=== PATIENT | female | born 1955 | race Caucasian/White ===

== ENCOUNTER 2016-06-14 15:58 | Emergency (ER) | payer BC, OTHER ==
[~2016-06-14] VITALS: Ht 162.6 cm; Wt 63.6 kg
[2016-06-14 16:01] VITALS: BP 140/67; PULSE 87; RESP 15; TEMP 98; O2SAT 99
--- NOTE | 2016-06-14 16:21 | PD ---
HPI Chief Complaint: Injury Time Seen by Provider: 16:12 Travel History International Travel<30 days: No Contact w/Intl Traveler<30days: No Traveled to known affect area: No History of Present Illness HPI 60-year-old female came to the emergency room with history of right leg sprain. Patient has history of injury to her right knee in the past. She had hardware there and hardware was removed. Today she went to stand up from a sitting position and suddenly heard a pop in the knee. Since then she's been in excruciating pain. She is unable to move that leg at the knee joint or bear weight. This happened at around 1 PM. She is otherwise comfortable if she is not moving her leg. Patient did not fall or hit her head. Vital signs otherwise stable. [facility] Past Medical History Narrative Medical List of her past medical history, social and family history is reviewed from the nursing note. Medical History: Denies Significant Hx Influenza Vaccination: Yes Social History Alcohol Use: Yes Tobacco Use: No Substance Use: No Allergies-Medications (Allergen,Severity, Reaction): Coded Allergies: No Known Allergies (Verified , 12/26/04) Comments No known drug allergies. Reported Meds & Prescriptions Reported Meds & Active Scripts Active Reported Nexium (Esomeprazole) Unknown Strength Pkt Unknown Dose [Primpro] Unknown Strength Unknown Dose Neurontin (Gabapentin) Unknown Strength Cap Unknown Dose PO BID Motrin Ib (Ibuprofen) Unknown Strength Tab Unknown Dose PO Q4H PRN Flexeril (Cyclobenzaprine HCl) Unknown Strength Tab Unknown Dose PO TID Narrative Medication List of her home medications reviewed from the nursing note. Review of Systems Except as stated in HPI: all other systems reviewed are Neg Physical Exam Narrative GENERAL: Awake, alert, no obvious distress SKIN: Warm and dry. HEAD: Atraumatic. Normocephalic. EYES: Pupils equal and round. No scleral icterus. No injection or drainage. ENT: No nasal bleeding or discharge. Mucous membranes pink and moist. NECK: Trachea midline. No JVD. CARDIOVASCULAR: Regular rate and rhythm. No murmur appreciated. RESPIRATORY: No accessory muscle use. Clear to auscultation. Breath sounds equal bilaterally. GASTROINTESTINAL: Abdomen soft, non-tender, nondistended. Hepatic and splenic margins not palpable. MUSCULOSKELETAL: No obvious deformities. No clubbing. No cyanosis. No edema. Right knee slightly swollen and red. Decreased range of motion due to the pain NEUROLOGICAL: Awake and alert. No obvious cranial nerve deficits. Motor grossly within normal limits. Normal speech. PSYCHIATRIC: Appropriate mood and affect; insight and judgment normal. Data Data Last Documented VS Orders Knee, Complete (4vws) (06/14/16 ) Morphine Inj (Morphine Inj) (06/14/16 16:45) Ondansetron Odt (Zofran Odt) (06/14/16 16:45) Sodium Chloride 0.9% Flush (Ns Flush) (06/14/16 17:15) Sodium Chlorid 0.9% 500 Ml Inj (Ns 500 M (06/14/16 17:15) Chest, Single Ap (06/14/16 ) Ct Knee W/O Contrast (06/14/16 ) ^ Knee Immobilizer (06/14/16 18:40) [employer] Request For Service (06/14/16 18:49) Immobilizer Knee 20 Inch (06/14/16 ) [facility] Medical Decision Making Medical Screen Exam Complete: Yes Emergency Medical Condition: Yes Medical Record Reviewed: Yes Differential Diagnosis Knee fracture, dislocation, sprain, joint effusion Narrative Course 4:51 PM patient has been given pain medication. Awaiting for the x-ray to be done and resulted. 6:06 PM x-ray of her knee showed a possible broken osteophyte. I've ordered a CT scan since patient is quite symptomatic. Awaiting for the CT scan to be done and resulted. 6:41 PM I discussed the case with Dr. Harrison who is on-call for orthopedics. Relayed to him the x-ray and the CAT scan report. As per him the mechanism did not fit any ligamental tear. He was okay in discharging the patient home with a immobilizer. He recommended that after couple days she should do gentle knee exercises along with ibuprofen and ice pack. He will follow up with the patient as an outpatient. I explained this to the patient and she is comfortable with the plan. She'll be discharged home. Procedures EKG Prior to Arrival: No Diagnosis Primary Impression: Strain of knee and leg, right Qualified Code: S86.911A - Strain of knee and leg, right, initial encounter Additional Impression: Arthritis of knee, right Referrals: Yinka Frye MD 1 week Additional Instructions: Please follow-up with the orthopedist's name and number been provided to you. Use the immobilizer for next 2 days. After which intermittently take the knee immobilizer off and do gentle the exercises. Take Motrin for pain relief and inflammation. Apply ice pack alternating with warm compresses. Keep the leg in an elevated position above the heart level to reduce the swelling. Med/Other Pt SpecificInfo: No Change to Meds Disposition: 01 DISCHARGE HOME Condition: Jim Baez MD Jun 14, 2016 16:21 Disposition: 01 DISCHARGE HOME Condition: Jim Baez MD Jun 14, 2016 16:21
[2016-06-14] MEDS ORDERED: CYCL5TAB PO (16:22)
[2016-06-14] MEDS ORDERED: MOTR200T4 PO (16:23)
[2016-06-14] MEDS ORDERED: PRIMPRO (16:23)
[2016-06-14] MEDS ORDERED: ESOM2.5G (16:23)
[2016-06-14] MEDS ORDERED: NEUR100C PO (16:23)
[2016-06-14] MEDS ORDERED: ONDANSETRON ODT 4 MG TAB PO ONE (16:45)
[2016-06-14] MEDS ORDERED: MORPHINE SULFATE 4 MG/ML INJ IM ONE (16:45)
[2016-06-14] MEDS ORDERED: SODIUM CHLORID 0.9% 500 ML INJ 500 ML IV ONE (17:15)
[2016-06-14] MEDS ORDERED: SODIUM CHLORIDE 0.9% FLUSH 5 ML FLUSH IVF PRN (17:15)
--- NOTE | 2016-06-14 17:17 | RADRPT ---
EXAM DATE/TIME: 06/14/2016 16:55 [facility] COMPARISON: No previous studies available for comparison. INDICATIONS : Right knee pain, twisted knee today. MEDICAL HISTORY : None. SURGICAL HISTORY : ACL repair. ENCOUNTER: Initial ACUITY: 1 day PAIN SCORE: 8/10 LOCATION: Right knee. FINDINGS: Bone density is normal. The osseous structures are normal alignment. On the oblique view, there is an ossific fragment seen anterior to the medial proximal tibia; this is not seen on the other views. The patella appears grossly intact. Suprapatellar soft tissues normal thickness. The medial latera l joint space are symmetric in width. There is deformity of the proximal diametaphysis of the fibula characteristic of an old fracture. CONCLUSION: Irregular ossific density anterior to the medial proximal tibial metaphysis seen only on one of the 4 views. This could represent heterotopic ossification related to prior knee surgery. Recommend kenny elation with clinical exam for point tenderness. Healed fracture proximal fibula. Michoacano Castellanos MD on June 14, 2016 at 17:14 Board Certified Radiologist. This report was verified electronically.
--- NOTE | 2016-06-14 17:35 | RADRPT ---
EXAM DATE/TIME: 06/14/2016 17:26 [facility] COMPARISON: No previous studies available for comparison. INDICATIONS : Chest pain. MEDICAL HISTORY : None. SURGICAL HISTORY : None. ENCOUNTER: Initial ACUITY: 1 day PAIN SCORE: 0/10 LOCATION: Bilateral chest FINDINGS: A single view of the chest demonstrates the lungs to be symmetrically aerated without evidence of mas s, infiltrate or effusion. The cardiomediastinal contours are unremarkable. Osseous structures are intact. CONCLUSION: The lungs are clear. Michoacano Castellanos MD on June 14, 2016 at 17:34 Board Certified Radiologist. This report was verified electronically.
--- NOTE | 2016-06-14 18:07 | RADRPT ---
EXAM DATE/TIME: 06/14/2016 17:39 [facility] COMPARISON: KNEE RIGHT COMPLETE (4VWS), June 14, 2016, 16:55. INDICATIONS : Evaluate for fracture ,patient said she was standing up and heard a pop in her knee. RADIATION DOSE: 22.49 CTDIvol (mGy) MEDICAL HISTORY : Injured knee SURGICAL HISTORY : knee surgery rt ENCOUNTER: Initial ACUITY: 1 day PAIN SCALE: 10/10 LOCATION: Right Knee TECHNIQUE: Volumetric scanning of the knee was performed. Using automated exposure control and adjustment of th e mA and/or kV according to patient size, radiation dose was kept as low as reasonably achievable to obtain optimal diagnostic quality images. FINDINGS: BONES: No evidence of fracture. Alignment is within normal limits. JOINTS: No evidence of joint narrowing or effusion. SOFT TISSUES: Muscles, tendons and neurovascular structures are grossly unremarkable. No evidence of mass, organize d fluid collection, or foreign body. There are 2 small subcentimeter corticated bone densities one be ing off the anterior medial tibial plateau correlative with the plain film abnormality and benign. A second is posteriorly off of the lateral condyle of the distal femur. These are both bursal or ligame ntous. There is no acute bony injury or joint effusion. CONCLUSION: A benign corticated bone density correlate with plain film findings representing possible ligamentous or bursal calcification. These do not represent an acute bony injury. Examination is otherwise negat renetta with no acute fracture or dislocation. León Martins MD on June 14, 2016 at 18:02 Board Certified Radiologist. This report was verified electronically.
== END 2016-06-14 19:19 | disposition home or self-care (01) ==
LOC: NEPE 15:58
DX: S86.811A Strain of other muscle(s) and tendon(s) at lower leg level, right leg, initial encounter (principal); Y93.89 Activity, other specified; Y92.9 Unspecified place or not applicable
CPT/HCPCS: 71010; 73564; 73700; 99284; L1830